=== PATIENT | male | born 1960 | race Hispanic/Latino ===

== ENCOUNTER → 2019-12-14 | Day surgery (SDC) | payer OTHER ==
[~2019-12-14] MED LIST: AMLODIPINE BESY10 MG PO; HYOSCYAMINE 0.125 MG TAB ONE; LOSARTAN POTAS100 MG PO; MULTI-VITAMIN1 EACH
--- NOTE | 2019-12-14 07:25 | NUR ---
SPIRITUAL CARE - Pre-Surgery Assessment: Pt in bed. Pt identified as Anabaptist. Pt reported supportive attention from family and friends. Intervention: Seaming Machine Operator provided pastoral presence, hospitality, sympathetic listening, and prayer. Acquainted pt with availability of instrumental music teacher while hospitalized. Outcome: Pt expressed appreciation for visit. No need for follow up indicated at this time. GIL[facility] Spiritual [facility] Department O: [phone]
[2019-12-14 09:30] VITALS: BP 139/75
--- NOTE | 2019-12-14 12:28 | Operative Report ---
DATE OF PROCEDURE: 12/14/2019 SURGEON: Gilson Fajardo MD PROCEDURE: Colonoscopy with polypectomy. INDICATIONS FOR COLONOSCOPY: Colorectal cancer screening, positive Cologuard test. MEDICATIONS: The patient was done under MAC, please see anesthesiologist's note. PROCEDURE IN DETAIL: With the patient in the left lateral decubitus position, a flexible fiberoptic Olympus colonoscope was inserted into the rectum with ease and advanced all the way to the cecum. Mucosa overlying the cecum and the ascending colon appeared to be within normal limits. A single diverticulum was noted in the proximal transverse colon. A 1 cm sessile polyp was noted in the distal transverse colon that was removed per snare electrocautery. An additional approximately 1 cm sessile polyp was noted in the proximal descending colon that was removed per snare electrocautery. Diverticular disease was noted in the distal descending and the sigmoid colon. The rectum appeared to be within normal limits. The scope was then retroflexed into the distal rectum and small internal hemorrhoids were noted, none of which was actively bleeding. The scope was then straightened out, it was subsequently withdrawn, and the patient tolerated the procedure well. IMPRESSION: 1. Transverse colon, sessile polyp approximately 1 cm in size, removed per hot snare polypectomy. 2. Descending colon polyp, sessile approximately 1 cm in size, removed per hot snare polypectomy. 3. Diverticulosis. 4. Internal hemorrhoids, none actively bleeding. PLAN: Follow up histology. Initiate high-fiber, low-fat diet. Initiate high-fiber supplement. The patient might benefit from a followup colonoscopy in 2 to 3 years. Gilson Fajardo MD [facility] [place] /[id number] cc: Laura Navarro MD
== END | disposition home or self-care (01) ==
LOC: OR 06:20
PROVIDERS: ATTEND Internal Medicine Gastroenterology
DX: R19.5 Other fecal abnormalities (principal); D12.4 Benign neoplasm of descending colon; D12.3 Benign neoplasm of transverse colon; K57.30 Diverticulosis of large intestine without perforation or abscess without bleeding; K64.8 Other hemorrhoids; I10 Essential (primary) hypertension; Z01.810 Encounter for preprocedural cardiovascular examination; Z01.812 Encounter for preprocedural laboratory examination; Z11.59 Encounter for screening for other viral diseases; Z68.36 Body mass index [BMI] 36.0-36.9, adult
CPT/HCPCS: 45385; 93005; U0002; 45378

== ENCOUNTER 2020-09-29 17:05 | Emergency (ER) ==
[~2020-09-29] VITALS: Ht 172.7 cm; Wt 102.1 kg
[~2020-09-29 17:05] MED LIST changes: -HYOSCYAMINE 0.125 MG TAB ONE
[2020-09-29] MEDS ORDERED: PANTOPRAZOLE 40 MG 10ML VIAL IV STA (17:19)
[2020-09-29] MEDS ORDERED: DICYCLOMINE HCL 20 MG/2 ML VIAL IM ONE (17:30)
[2020-09-29 17:55] LABS: BASOPHILS % 0.5 % (0.0-1.0); EOSINOPHILS # (AUTO) 0.4 (0.0-0.4); EOSINOPHILS % 4.2 % (0.0-6.0); HEMOGLOBIN 13.7 g/dL (14.0-18.0); LYMPHOCYTES # (AUTO) 2.5 (1.0-3.2); LYMPHOCYTES % 27.8 % (18.0-39.1); MEAN CORPUSCULAR HEMOGLOBIN 30.2 pg (28-32); MEAN CORPUSCULAR HGB CONC 33.4 g/dL (31-35); MEAN CORPUSCULAR VOLUME 90.3 fL (81-99); MONOCYTES # (AUTO) 0.7 (0.2-0.8); MONOCYTES % 8.1 % (4.4-11.3); NEUTROPHILS # (AUTO) 5.2 (2.1-6.9); NEUTROPHILS % 58.2 % (38.7-80.0); PLATELET COUNT 257 x10e3/uL (140-360); RED BLOOD COUNT 4.54 x10e6/uL (4.3-5.7); RED CELL DISTRIBUTION WIDTH 12.6 % (11.7-14.4)
[2020-09-29 18:11] LABS: ALANINE AMINOTRANSFERASE 21 IU/L (0-55); ALBUMIN/GLOBULIN RATIO 1.1 (0.8-2.0); ALKALINE PHOSPHATASE 63 IU/L (40-150); ANION GAP 13.7 mmol/L (8-16); BLOOD UREA NITROGEN 16 mg/dL (7-26); BUN/CREATININE RATIO 17 (6-25); CALCIUM 9.5 mg/dL (8.4-10.2); CARBON DIOXIDE 26 mmol/L (22-29); CHLORIDE 101 mmol/L (98-107); CREATINE KINASE 78 IU/L (30-200); CREATININE, SERUM 0.94 mg/dL (0.72-1.25); EST GLOMERULAR FILTRATION RATE > 60 ML/MIN (60-); GLUCOSE 113 mg/dL (74-118); POTASSIUM 3.7 mmol/L (3.5-5.1); SODIUM 137 mmol/L (136-145)
[2020-09-29 18:12] LABS: AMYLASE 37 U/L (25-125); LIPASE 19 U/L (8-78)
[2020-09-29 20:55] VITALS: BP 124/65
== END 2020-09-29 20:57 | disposition home or self-care (01) ==
LOC: ER 17:29
DX: R10.11 Right upper quadrant pain (principal); K29.70 Gastritis, unspecified, without bleeding; I10 Essential (primary) hypertension; E78.5 Hyperlipidemia, unspecified; R94.31 Abnormal electrocardiogram [ECG] [EKG]
CPT/HCPCS: 36415; 76705; 80053; 82150; 82550; 82553; 83690; 84484; 85025; 93005; 99283; C9113; J0500

== ENCOUNTER → 2023-05-20 | Day surgery (SDC) | payer BC ==
[2023-05-15 07:20] LABS: BASOPHILS # (AUTO) 0.1 (0.0-0.1); BASOPHILS % 0.6 % (0.0-1.0); EOSINOPHILS # (AUTO) 0.3 (0.0-0.4); HEMATOCRIT 44.6 % (38.2-49.6); HEMOGLOBIN 14.7 g/dL (14.0-18.0); LYMPHOCYTES % 25.5 % (18.0-39.1); MEAN CORPUSCULAR HEMOGLOBIN 30.7 pg (28-32); MEAN CORPUSCULAR VOLUME 93.1 fL (81-99); MONOCYTES # (AUTO) 0.6 (0.2-0.8); MONOCYTES % 8.3 % (4.4-11.3); NEUTROPHILS # (AUTO) 4.7 (2.1-6.9); NEUTROPHILS % 61.2 % (38.7-80.0); PLATELET COUNT 249 x10e3/uL (140-360); RED BLOOD COUNT 4.79 x10e6/uL (4.3-5.7); RED CELL DISTRIBUTION WIDTH 12.7 % (11.7-14.4); WHITE BLOOD COUNT 7.75 x10e3/uL (4.8-10.8)
[~2023-05-20] MED LIST changes: +ASPIRIN81 MG PO; +BENICAR20 MG PO; +FENTANYL CITRATE/PF 100MCG/2 ML INJ ONE; +LACTATED RINGER'S 1,000 ML ONE; +LEVOTHYROXINE50 MCG PO; +LIDOCAINE HCL 2% LOCAL INJ 5 ML SDV VIAL INJ ONE; +MELOXICAM7.5 MG PO; +MIDAZOLAM HCL 2 MG/2 ML VIAL ONE; +PROPOFOL IV EMULSION 10 MG/ML 20 ML VIAL ONE; +PROPOFOL IV EMULSION 10 MG/ML 50 ML VIAL IV ONE
[2023-05-20 10:40] VITALS: BP 132/89; PULSE 79; RESP 14; O2SAT 98
== END | disposition home or self-care (01) ==
LOC: OR 07:50
PROVIDERS: ATTEND Internal Medicine Gastroenterology
DX: Z09 Encounter for follow-up examination after completed treatment for conditions other than malignant neoplasm (principal); K63.5 Polyp of colon; K57.30 Diverticulosis of large intestine without perforation or abscess without bleeding; K64.8 Other hemorrhoids; I10 Essential (primary) hypertension; E03.9 Hypothyroidism, unspecified; I25.10 Atherosclerotic heart disease of native coronary artery without angina pectoris; E78.5 Hyperlipidemia, unspecified; Z01.812 Encounter for preprocedural laboratory examination; Z79.82 Long term (current) use of aspirin; Z79.1 Long term (current) use of non-steroidal anti-inflammatories (NSAID)
CPT/HCPCS: 36415; 45380; 85025; J2001; J2250; J2704 ×2; J3010; J7121; 45378; 45385

== ENCOUNTER 2024-02-07 16:39 | Emergency (ER) | payer BC ==
[~2024-02-07] VITALS: Ht 180.3 cm; Wt 114.3 kg
[~2024-02-07 16:39] MED LIST changes: -FENTANYL CITRATE/PF 100MCG/2 ML INJ ONE; -LACTATED RINGER'S 1,000 ML ONE; -LIDOCAINE HCL 2% LOCAL INJ 5 ML SDV VIAL INJ ONE; -MIDAZOLAM HCL 2 MG/2 ML VIAL ONE; -PROPOFOL IV EMULSION 10 MG/ML 20 ML VIAL ONE; -PROPOFOL IV EMULSION 10 MG/ML 50 ML VIAL IV ONE
[2024-02-07] MEDS ORDERED: MEDROL4 M2 PO (17:20)
[2024-02-07] MEDS ORDERED: METHOCARBAMOL750 MG PO (17:21)
[2024-02-07] MEDS ORDERED: MELOXICAM7.5 MG PO (17:22)
[2024-02-07] MEDS: KETOROLAC TROMETHAMINE 30 MG/ML VIAL IV STA (17:26)
[2024-02-07 17:38] VITALS: PULSE 64; RESP 16; TEMP 98.8; O2SAT 98
[2024-02-07] MEDS ORDERED: BENICAR HCT 201 EACH (19:57)
[2024-02-07] MEDS ORDERED: ROSUVASTATIN CA20 MG (19:57)
== END 2024-02-07 17:38 | disposition home or self-care (01) ==
LOC: FSED 16:43
DX: M54.32 Sciatica, left side (principal); I10 Essential (primary) hypertension; E78.5 Hyperlipidemia, unspecified
CPT/HCPCS: 80048; 85025; 85379; 96372; 99283; J1885